=== PATIENT | male | born 1960 | race Caucasian/White ===

== ENCOUNTER → 2021-04-20 | Outpatient (CLI) | payer BC ==
--- NOTE | 2021-04-20 16:39 | REP ---
INDICATION: 4TH AND 5TH DIGIT TRAUMA. COMPARISON: None. TECHNIQUE: Four views FINDINGS: There is a hallux valgus deformity. There is asymmetric joint space narrowing of the 1st metatarsophalangeal joint. The remainder of the joint spaces are symmetric and relatively well maintained. There is no acute fracture. IMPRESSION: Chronic changes as described above. <Electronically signed by Errol Garcia > 04/20/21 [id number]
== END ==
LOC: M WUC 15:48
PROVIDERS: ATTEND Physician Assistant Medical
DX: S99.921A Unspecified injury of right foot, initial encounter (principal); M20.11 Hallux valgus (acquired), right foot

== ENCOUNTER → 2023-04-04 | Outpatient (REF) | payer BC | LOC: M LAB REF 17:02 | PROVIDERS: ATTEND Nurse Practitioner Family | DX: R31.9 Hematuria, unspecified (principal) ==

== ENCOUNTER → 2023-04-13 | Outpatient (CLI) | payer BC | LOC: M RAD 11:30 | PROVIDERS: ATTEND Family Medicine | DX: R31.9 Hematuria, unspecified (principal) ==

== ENCOUNTER → 2023-04-18 | Outpatient (REF) | payer BC ==
[~2023-04-18] MED LIST: SIMV10TA21 PO
== END ==
LOC: M LAB REF 16:36
PROVIDERS: ATTEND Family Medicine
DX: R31.9 Hematuria, unspecified (principal)

== ENCOUNTER 2023-05-09 10:30 | Day surgery (SDC) | payer BC ==
[~2023-05-09] VITALS: Ht 185.4 cm; Wt 96.6 kg
[~2023-05-09 10:30] MED LIST changes: +NS 1,000 ML IV ONE; +OMEG10002 PO
[2023-05-09 11:54] VITALS: TEMP 98.9
[2023-05-09] MEDS ORDERED: LIDOCAINE 2% 100MG/5ML SDV (FOR ANES.) As Ordered ONE (12:05)
[2023-05-09] MEDS ORDERED: propofoL 200 MG/20 ML VIAL As Ordered ONE (12:05)
[2023-05-09 12:11] VITALS: BP 146/88; O2SAT 99
== END 2023-05-09 12:31 | disposition home or self-care (01) ==
LOC: M OPP 10:30
PROVIDERS: ATTEND Surgery
DX: Z12.11 Encounter for screening for malignant neoplasm of colon (principal); D12.6 Benign neoplasm of colon, unspecified; Z79.02 Long term (current) use of antithrombotics/antiplatelets

== ENCOUNTER → 2023-12-04 | Outpatient (CLI) | payer BC ==
[~2023-12-04] MED LIST changes: -NS 1,000 ML IV ONE
== END ==
LOC: M WUC 14:45
PROVIDERS: ATTEND Nurse Practitioner Family
DX: R05.9 Cough, unspecified (principal)

== ENCOUNTER → 2024-09-19 | Outpatient (CLI) | payer BC ==
[~2024-09-19] MED LIST changes: +E-Z-GAS II EFFERVESCENT PACKET (SODIUM BICARB./CITRIC ACID/SIMETHICONE) As Ordered ONE; +E-Z-HD 98% w/w 340GM SUSP BTL As Ordered ONE; +E-Z-PAQUE 96% w/w SUSP 176GM BTL As Ordered ONE
== END ==
LOC: M RAD 09:12
PROVIDERS: ATTEND Family Medicine
DX: K44.9 Diaphragmatic hernia without obstruction or gangrene (principal); K21.9 Gastro-esophageal reflux disease without esophagitis

== ENCOUNTER 2024-11-28 08:05 | Day surgery (SDC) | payer BC ==
[~2024-11-28] VITALS: Ht 185.4 cm; Wt 105.4 kg
[~2024-11-28 08:05] MED LIST changes: +ATOR1TAB21 PO; -E-Z-GAS II EFFERVESCENT PACKET (SODIUM BICARB./CITRIC ACID/SIMETHICONE) As Ordered ONE; -E-Z-HD 98% w/w 340GM SUSP BTL As Ordered ONE; -E-Z-PAQUE 96% w/w SUSP 176GM BTL As Ordered ONE
[2024-11-28] MEDS ORDERED: GLYCOPYRROLATE INJ 0.2 MG/ML 2 ML VIAL As Ordered ONE (08:45)
[2024-11-28] MEDS ORDERED: LIDOCAINE 2% 100MG/5ML SDV (FOR ANES.) As Ordered ONE (08:45)
[2024-11-28] MEDS ORDERED: propofoL 200 MG/20 ML VIAL As Ordered ONE (08:46)
[2024-11-28 09:35] VITALS: BP 125/86; TEMP 98; O2SAT 97
== END 2024-11-28 09:47 | disposition home or self-care (01) ==
LOC: M OPP 08:05
PROVIDERS: ATTEND Surgery
DX: K44.9 Diaphragmatic hernia without obstruction or gangrene (principal); K20.90 Esophagitis, unspecified without bleeding
CPT/HCPCS: 43239; 88305; J1596